=== PATIENT | female | born 1990 | race Caucasian/White ===

== ENCOUNTER 2018-04-14 12:58 | Emergency (ER) | payer SELFPAY ==
[2018-04-14] MEDS ORDERED: Ondansetron 4 MG/2 ML SDV IVPUSH ONE (13:57)
[2018-04-14] MEDS ORDERED: Sodium Chloride 0.9% 1,000 ML IV ONE (13:57)
--- NOTE | 2018-04-14 13:58 | EDM.PDOC ---
ED HPI GENERAL MEDICAL PROBLEM - General Chief Complaint: QUANTITATIVE ASSOCIATE Problem Stated Complaint: FEVER, 10 WKS , NAUSEA Time Seen by Provider: 04/14/18 13:52 Source of Information: Reports: Patient History Limitations: Reports: No Limitations - History of Present Illness INITIAL COMMENTS - FREE TEXT/NARRATIVE: Is 10 weeks . Usually vomits in the am x 1. Appetite reduced. Taking vitamin. Has Zofran but is not taking it very often. No diarrhea. Noble feverish today. No chills. Did get a liter of fluid on Sunday. 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: Social & Family History - Tobacco Use Smoking Status *Q: Current Every Day Smoker Years of Tobacco use: 12 Packs/Tins Daily: 0.5 - Caffeine Use Caffeine Use: Reports: None - Recreational Drug Use Recreational Drug Use: No ED ROS GENERAL - Review of Systems Review Of Systems: See Below Constitutional: Reports: Fever HEENT: Reports: No Symptoms Respiratory: Reports: No Symptoms Cardiovascular: Reports: No Symptoms Endocrine: Reports: No Symptoms GI/Abdominal: Reports: Vomiting (x2 this am) : Reports: No Symptoms Musculoskeletal: Reports: No Symptoms Skin: Reports: No Symptoms Neurological: Reports: No Symptoms Psychiatric: Reports: No Symptoms Hematologic/Lymphatic: Reports: No Symptoms Immunologic: Reports: No Symptoms ED EXAM - Physical Exam Exam: See Below Exam Limited By: No Limitations General Appearance: Alert, WD/WN, No Apparent Distress Ears: Normal External Exam, Normal Canal, Hearing Grossly Normal, Normal TMs Nose: Normal Inspection, Normal Mucosa, No Blood Throat/Mouth: Normal Inspection, Normal Lips, Normal Teeth, Normal Gums, Normal Oropharynx, Normal Voice, No Airway Compromise Head: Atraumatic, Normocephalic Neck: Normal Inspection, Supple, Non-Tender, Full Range of Motion Respiratory/Chest: No Respiratory Distress, Lungs Clear, Normal Breath Sounds, No Accessory Muscle Use, Chest Non-Tender Cardiovascular: Normal Peripheral Pulses, Regular Rate, Rhythm, No Edema, No Gallop, No JVD, No Murmur, No Rub GI/Abdominal Exam: Normal Bowel Sounds, Soft, Non-Tender, No Organomegaly, No Distention, No Abnormal Bruit, No Mass, Pelvis Stable Back Exam: Normal Inspection, Full Range of Motion, NT Extremities: Normal Inspection, Normal Range of Motion, Non-Tender, Normal Capillary Refill, No Pedal Edema Neurological: Alert, Oriented, CN II-XII Intact, Normal Cognition, Normal Gait, Normal Reflexes, No Motor/Sensory Deficits Psychiatric: Normal Affect, Normal Mood Course - Vital Signs Last Recorded V/S: Last Vital Signs Temp 97.3 F 04/14/18 13:26 Pulse 78 04/14/18 13:26 Resp 16 04/14/18 13:26 BP 117/69 04/14/18 13:26 Pulse Ox 98 04/14/18 13:26 - Orders/Labs/Meds Orders: Active Orders 24 hr Category Date Time Status UA W/MICROSCOPIC [URIN] Stat Lab 04/14/18 15:19 Ordered Labs: Laboratory Tests 04/14/18 Range/Units 15:19 Urine Color Yellow Urine Appearance Slightly cloudy Urine pH 6.0 (4.5-8.0) Ur Specific [place] 1.010 (1.008-1.030) Urine Protein Negative (NEGATIVE) mg/dL Urine Glucose (UA) Normal (NEGATIVE) mg/dL Urine Ketones Negative (NEGATIVE) mg/dL Urine Occult Blood Negative (NEGATIVE) Urine Nitrite Negative (NEGATIVE) Urine Bilirubin Negative (NEGATIVE) Urine Urobilinogen Normal (NORMAL) mg/dL Ur Leukocyte Esterase Negative (NEGATIVE) Urine RBC 0-5 (0-5) Urine WBC Not seen (0-5) Ur Epithelial Cells Few Amorphous Sediment Not seen Urine Bacteria Few Urine Mucus Rare Meds: Medications Discontinued Medications Generic Name Dose Route Start Last Admin Trade Name Freq PRN Reason Stop Dose Admin Sodium Chloride 1,000 mls @ 999 drops/sec 04/14/18 13:57 04/14/18 14:40 Normal Saline IV 04/14/18 13:58 999 drops/sec .BOLUS ONE Administration Ondansetron HCl 4 mg 04/14/18 13:57 04/14/18 14:40 Zofran IVPUSH 04/14/18 13:58 4 mg ONETIME ONE Administration Departure - Departure Time of Disposition: 15:43 Disposition: Home, Self-Care 01 Condition: Good Clinical Impression: , excessive vomiting - Discharge Information Referrals: Cinthya Narvaez CNM [Primary Care Provider] - Forms: ED Department Discharge Additional Instructions: UA normal. IV NS 1000ml infused. Zofran 4mg IV given with good resolution of symptoms. Pt able to drink a milk shake while her in ER. To be discharged home. Discussed tips for nausea and vomiting in . Followup with OB for routine cares. - Problem List & Annotations (1) , excessive vomiting Status: Acute Priority: Medium Current Visit: Yes - My Orders Last 24 Hours: My Active Orders 04/14/18 15:19 UA W/MICROSCOPIC [URIN] Stat - Assessment/Plan Last 24 Hours: My Active Orders 04/14/18 15:19 UA W/MICROSCOPIC [URIN] Stat
== END 2018-04-14 15:56 | disposition home or self-care (01) ==
LOC: JP.ED 12:58
DX: O21.9 Vomiting of pregnancy, unspecified (principal); O99.331 Smoking (tobacco) complicating pregnancy, first trimester; F17.210 Nicotine dependence, cigarettes, uncomplicated; Z88.1 Allergy status to other antibiotic agents; Z3A.10 10 weeks gestation of pregnancy
CPT/HCPCS: 81001; 96361; 96374; 99284; J2405; J7030

== ENCOUNTER 2018-05-04 04:46 | Emergency (ER) | payer OTHER ==
--- NOTE | 2018-05-04 05:11 | EDM.PDOC ---
ED HPI GENERAL MEDICAL PROBLEM - General Source of Information: Reports: Patient, Family History Limitations: Reports: No Limitations - History of Present Illness Onset: Unknown/Unsure Severity: Moderate (Sometime overnight she started bleeding) Associated Symptoms: Reports: Nausea/Vomiting Treatments STICK INSERTER: Reports: Oxygen, Other (see below) Other Treatments STICK INSERTER: none Lower Abdominal Pain Score (Numeric/FACES): 3 <Arian Gannon - Last Filed: 05/04/18 06:55> <Ivory Swenson - Last Filed: 05/04/18 08:06> - General Chief Complaint: HASH SLINGER Problem Stated Complaint: 12 WEEKS PG AND BLEEDING Time Seen by Provider: 05/04/18 05:00 - History of Present Illness INITIAL COMMENTS - FREE TEXT/NARRATIVE: 28-year-old female carrying twins, had an ultrasound yesterday and everything looked good at roughly 12 weeks' gestation however this morning when she got up to go to work she passed a fairly large amount of blood into the toilet and feels like she still bleeding. She has developed some mild diffuse abdominal discomfort, no pelvic cramping. She is tearful and very concerned. 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: <Arian Gannon - Last Filed: 05/04/18 06:55> Social & Family History - Caffeine Use Caffeine Use: Reports: None <Arian Gannon - Last Filed: 05/04/18 06:55> ED ROS GENERAL - Review of Systems Review Of Systems: See Below Constitutional: Denies: Fever, Chills HEENT: Reports: No Symptoms Respiratory: Denies: Shortness of Breath GI/Abdominal: Reports: Other (Patient is being treated with IV fluids on a fairly regular basis for persistent hyperemesis gravidarum symptoms) <Arian Gannon - Last Filed: 05/04/18 06:55> ED EXAM - Physical Exam Exam: See Below Exam Limited By: No Limitations General Appearance: Alert, No Apparent Distress, Anxious Eye Exam: Bilateral Eye: Other (Eyes are well-hydrated) Respiratory/Chest: No Respiratory Distress Neurological: Alert, Oriented Skin Exam: Warm, Dry <Arian Gannon - Last Filed: 05/04/18 06:55> Course <Arian Gannon - Last Filed: 05/04/18 06:55> <Ivory Swenson - Last Filed: 05/04/18 08:06> - Vital Signs Last Recorded V/S: Last Vital Signs Temp 36.3 C 05/04/18 05:10 Pulse 77 05/04/18 05:10 Resp 18 05/04/18 05:10 BP 111/64 05/04/18 05:10 Pulse Ox 96 05/04/18 05:10 - Orders/Labs/Meds Orders: Active Orders 24 hr Category Date Time Status OB Ltd 1 or More Fetus [US] Stat Exams 05/04/18 05:11 Taken Sodium Chloride 0.9% [Normal Saline] 1,000 ml Med 05/04/18 07:00 Active IV ASDIRECTED Medication Orders Sodium Chloride (Normal Saline) 1,000 mls @ 1,000 mls/hr IV ASDIRECTED [place]O Last Admin: 05/04/18 07:02 Dose: 1,000 mls/hr Labs: Laboratory Tests 05/04/18 05/04/18 Range/Units 07:07 07:07 WBC 14.9 H (4.5-11.0) K/uL RBC 4.38 (3.30-5.50) M/uL Hgb 13.9 (12.0-15.0) g/dL Hct 39.0 (36.0-48.0) % MCV 89 (80-98) fL MCH 32 H (27-31) pg MCHC 36 (32-36) % Plt Count 163 (150-400) K/uL Neut % (Auto) 81 H (36-66) % Lymph % (Auto) 12 L (24-44) % [place] % (Auto) 6 (2-6) % Eos % (Auto) 1 L (2-4) % Baso % (Auto) 0 (0-1) % Sodium 137 L (140-148) mmol/L Potassium 3.3 L (3.6-5.2) mmol/L Chloride 103 (100-108) mmol/L Carbon Dioxide 24 (21-32) mmol/L Anion Gap 13.3 (5.0-14.0) mmol/L BUN 5 L (7-18) mg/dL Creatinine 0.7 (0.6-1.0) mg/dL Est Cr Clr Drug Dosing 114.01 mL/min Estimated GFR (MDRD) > 60 (>60) Glucose 79 (74-106) mg/dL Calcium 8.7 (8.5-10.1) mg/dL Meds: Medications Generic Name Dose Route Start Last Admin Trade Name Freq PRN Reason Stop Dose Admin Sodium Chloride 1,000 mls @ 1,000 mls/hr 05/04/18 07:00 05/04/18 07:02 Normal Saline IV 1,000 mls/hr ASDIRECTED [facility] Administration - Re-Assessments/Exams Free Text/Narrative Re-Assessment/Exam: 05/04/18 05:10 A first trimester ultrasound was ordered. 05/04/18 06:55 Confirmation has not been obtained yet but ultrasound appears to show a subchorionic hemorrhage. Both fetuses are viable. I discussed her condition with Wendy Hernandez, a CBC and BMP was obtained and the patient was given 1 L of normal saline. She will be evaluated by Wendy later this morning. (Arian Gannon) Departure - Departure Condition: Good <Arian Gannon - Last Filed: 05/04/18 06:55> - Departure Time of Disposition: 08:06 <Ivory Swenson - Last Filed: 05/04/18 08:06> - Departure Disposition: Home, Self-Care 01 Clinical Impression: Threatened Subchorionic hemorrhage in first trimester Qualifiers: Fetus number: single or unspecified fetus Qualified Code(s): O41.8X10 - Other specified disorders of amniotic fluid and membranes, first trimester, not applicable or unspecified - Discharge Information Instructions: Pelvic Rest, Subchorionic Hematoma Referrals: Brice,Cinthya A, CNM [Primary Care Provider] - Forms: ED Department Discharge Care Plan Goals: low activity, appt with Albina Narvaez Sunday to followup.
[2018-05-04] MEDS ORDERED: Sodium Chloride 0.9% 1,000 ML IV SCH (07:00)
== END 2018-05-04 08:14 | disposition home or self-care (01) ==
LOC: JP.ED 04:46
DX: O20.0 Threatened abortion (principal); O30.001 Twin pregnancy, unspecified number of placenta and unspecified number of amniotic sacs, first trimester; Z79.899 Other long term (current) drug therapy; Z88.1 Allergy status to other antibiotic agents; Z3A.12 12 weeks gestation of pregnancy
CPT/HCPCS: 36415; 76815; 80048; 85025; 96360; 99284; J7030

== ENCOUNTER 2018-06-15 20:24 | Emergency (ER) | payer OTHER ==
--- NOTE | 2018-06-15 21:00 | EDM.PDOC ---
ED HPI GENERAL MEDICAL PROBLEM - General Chief Complaint: Cardiovascular Problem Stated Complaint: HEART PALPITATIONS Time Seen by Provider: 06/15/18 20:44 Source of Information: Reports: Patient, Family, RN Notes Reviewed History Limitations: Reports: No Limitations - History of Present Illness INITIAL COMMENTS - FREE TEXT/NARRATIVE: 28-year-old female presents to emergency department day complaint of palpitations she is 2 para 1 currently at 18 and 5 weeks with twins she states she'll get palpitations last a short time less than 5 minutes but they've been increasing in frequency and severity states she gets them about every day. 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 She states she did not have these with last time had no issues - Related Data Allergies Allergy/AdvReac Type Severity Reaction Status Date / Time amoxicillin Allergy Hives Verified 06/15/18 20:40 Home Meds: Home Meds Ondansetron HCl [Ondansetron] 4 mg PO Q8HR PRN 04/14/18 [History] Doxylamine Succinate [Wal-Shola] 0.5 tab PO BEDTIME 05/04/18 [History] Vit #116/Iron/FA/Dha [ Formula-Dha Softgel] 1 tab PO DAILY [History] Past Medical History Cardiovascular History: Reports: Arrhythmia CAMP DIRECTOR History: Reports: Musculoskeletal History: Reports: Arthritis Neurological History: Reports: Migraines Psychiatric History: Reports: Anxiety, Depression - Infectious Disease History Infectious Disease History: Reports: Chicken Pox, Mononucleosis, Shingles Social & Family History - Tobacco Use Smoking Status *Q: Current Every Day Smoker Years of Tobacco use: 14 Packs/Tins Daily: 0.5 - Caffeine Use Caffeine Use: Reports: None - Recreational Drug Use Recreational Drug Use: No ED ROS GENERAL - Review of Systems Review Of Systems: See Below Constitutional: Reports: No Symptoms HEENT: Reports: No Symptoms Respiratory: Reports: No Symptoms Cardiovascular: Reports: Chest Pain, Palpitations GI/Abdominal: Reports: No Symptoms : Reports: No Symptoms Musculoskeletal: Reports: No Symptoms Skin: Reports: No Symptoms Neurological: Reports: No Symptoms ED EXAM, GENERAL - Physical Exam Exam: See Below Exam Limited By: No Limitations General Appearance: Alert, WD/WN, No Apparent Distress Head: Atraumatic, Normocephalic Neck: Normal Inspection, Supple, Non-Tender, Full Range of Motion Respiratory/Chest: No Respiratory Distress, Lungs Clear, Normal Breath Sounds, No Accessory Muscle Use, Chest Non-Tender Cardiovascular: Normal Peripheral Pulses, Regular Rate, Rhythm, No JVD, No Murmur, No Rub GI/Abdominal: Soft, Other (, pedal heart tones both in the 150 range) Course - Vital Signs Last Recorded V/S: Last Vital Signs Temp 98.7 F 06/15/18 20:40 Pulse 84 06/15/18 20:40 Resp 23 H 06/15/18 20:40 BP 107/62 06/15/18 20:40 Pulse Ox 97 06/15/18 20:40 - Orders/Labs/Meds Orders: Active Orders 24 hr Category Date Time Status EKG Documentation Completion [RC] ASDIRECTED Care 06/15/18 20:58 Active EKG 12 Lead [EK] Stat Ther 06/15/18 20:57 Ordered Labs: Laboratory Tests 06/15/18 06/15/18 06/15/18 Range/Units 20:57 20:57 20:58 WBC 12.8 H (4.5-11.0) K/uL RBC 3.75 (3.30-5.50) M/uL Hgb 12.1 (12.0-15.0) g/dL Hct 33.7 L (36.0-48.0) % MCV 90 (80-98) fL MCH 32 H (27-31) pg MCHC 36 (32-36) % Plt Count 156 (150-400) K/uL Neut % (Auto) 77 H (36-66) % Lymph % (Auto) 15 L (24-44) % [place] % (Auto) 6 (2-6) % Eos % (Auto) 1 L (2-4) % Baso % (Auto) 0 (0-1) % Sodium 139 L (140-148) mmol/L Potassium 3.2 L (3.6-5.2) mmol/L Chloride 104 (100-108) mmol/L Carbon Dioxide 26 (21-32) mmol/L Anion Gap 12.2 (5.0-14.0) mmol/L BUN 4 L (7-18) mg/dL Creatinine 0.6 (0.6-1.0) mg/dL Est Cr Clr Drug Dosing 133.01 mL/min Estimated GFR (MDRD) > 60 (>60) Glucose 95 (74-106) mg/dL Calcium 8.7 (8.5-10.1) mg/dL Magnesium 1.7 L (1.8-2.4) mg/dL Total Bilirubin 0.2 (0.2-1.0) mg/dL AST 15 (15-37) U/L ALT 19 (12-78) U/L Alkaline Phosphatase 63 (46-116) U/L Total Protein 5.7 L (6.4-8.2) g/dL Albumin 2.5 L (3.4-5.0) g/dL Globulin 3.2 (2.3-3.5) g/dL Albumin/Globulin Ratio 0.8 L (1.2-2.2) TSH, Ultra Sensitive 2.250 (0.358-3.740) uIU/mL Departure - Departure Time of Disposition: 22:13 Disposition: Home, Self-Care 01 Condition: Good Clinical Impression: Palpitations Referrals: Cinthya Narvaez CNM [Primary Care Provider] - Forms: ED Department Discharge Additional Instructions: Please report to respiratory therapy on Sunday for placement of a Holter monitor , follow-up with your primary care a few days after he returned the Holter monitor for review and results - My Orders Last 24 Hours: My Active Orders 06/15/18 20:57 EKG 12 Lead [EK] Stat 06/15/18 20:58 EKG Documentation Completion [RC] ASDIRECTED - Assessment/Plan Last 24 Hours: My Active Orders 06/15/18 20:57 EKG 12 Lead [EK] Stat 06/15/18 20:58 EKG Documentation Completion [RC] ASDIRECTED Plan: Assessment Acuity = acute Site and laterality = palpitations Etiology = suspicious for underlying PVCs possibly related to nicotine Manifestations = none Location of injury = Home Lab values = WBC elevated 12.8 consistent leukocytosis, potassium low at 3.2 consistent hypokalemia magnesium low at 1.7 consistent with hypomagnesemia albumin low at 2.5 consistent with hypoalbuminemia, EKG demonstrates sinus rhythm no ST changes or depressions noted no PVCs appreciated Plan She did have a few PVCs appreciated on the traffic monitor specialist I talked to her about options to review her vitamin to make sure it has adequate potassium and magnesium minutes also she is set up for a Holter monitor she will pick this up on Sunday 48 hours follow-up with primary care after Holter monitor results available This note was dictated using Genome voice recognition software please call with any questions on syntax or grammar.
== END 2018-06-15 22:24 | disposition home or self-care (01) ==
LOC: JP.ED 20:24
DX: O99.89 Other specified diseases and conditions complicating pregnancy, childbirth and the puerperium (principal); R00.2 Palpitations; Z3A.18 18 weeks gestation of pregnancy; O99.331 Smoking (tobacco) complicating pregnancy, first trimester; F17.210 Nicotine dependence, cigarettes, uncomplicated; Z79.899 Other long term (current) drug therapy; Z88.1 Allergy status to other antibiotic agents
CPT/HCPCS: 36415; 80053; 83735; 84443; 85025; 93005; 99284-25

== ENCOUNTER 2019-09-28 16:29 | Emergency (ER) | payer OTHER ==
--- NOTE | 2019-09-28 18:49 | EDM.PDOC ---
ED HPI GENERAL MEDICAL PROBLEM - General Chief Complaint: Respiratory Problem Stated Complaint: SOB, VOMITING, POSSIBLE DEHYDRATION Time Seen by Provider: 09/28/19 18:30 Source of Information: Reports: Patient History Limitations: Reports: No Limitations - History of Present Illness INITIAL COMMENTS - FREE TEXT/NARRATIVE: 29-year-old currently 11 weeks presents to concerns of nasal congestion cough, nausea. She reports that symptoms started approximately 2 days ago. She's been having progressive nasal congestion and associated cough. She has no chest pain. No fevers. She reports that she will have bouts of coughing which lead to nausea, several episodes of small volume emesis. The cough has been productive of yellow sputum. No blood. 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: Musculoskeletal History: Reports: Arthritis Neurological History: Reports: Migraines Psychiatric History: Reports: Anxiety, Depression Hematologic History: Reports: Anemia - Infectious Disease History Infectious Disease History: Reports: Chicken Pox - Past Surgical History HEENT Surgical History: Reports: None Social & Family History - Family History Family Medical History: Unobtainable - Tobacco Use Smoking Status *Q: Current Every Day Smoker Years of Tobacco use: 12 Packs/Tins Daily: 0.5 - Caffeine Use Caffeine Use: Reports: None Caffeine Use Comment: occasional coffee, soda 2-3 / week - Recreational Drug Use Recreational Drug Use: No ED ROS GENERAL - Review of Systems Review Of Systems: See Below Constitutional: Reports: Malaise HEENT: Reports: Sinus Problem Respiratory: Reports: Cough Cardiovascular: Reports: No Symptoms Endocrine: Reports: No Symptoms GI/Abdominal: Reports: No Symptoms : Reports: No Symptoms Musculoskeletal: Reports: No Symptoms Skin: Reports: No Symptoms Neurological: Reports: No Symptoms Psychiatric: Reports: No Symptoms Hematologic/Lymphatic: Reports: No Symptoms Immunologic: Reports: No Symptoms ED EXAM, GENERAL - Physical Exam Exam: See Below Exam Limited By: No Limitations General Appearance: Alert, No Apparent Distress Ears: Normal External Exam Nose: Normal Inspection Head: Atraumatic, Normocephalic Neck: Normal Inspection Respiratory/Chest: No Respiratory Distress, Lungs Clear Cardiovascular: Regular Rate, Rhythm GI/Abdominal: Soft, Non-Tender Back Exam: Normal Inspection Extremities: Normal Inspection Neurological: Alert, Oriented Psychiatric: Normal Affect, Normal Mood Skin Exam: Warm, Dry Course - Vital Signs Last Recorded V/S: Last Vital Signs Temp 36.7 C 09/28/19 17:00 Pulse 104 H 09/28/19 17:00 Resp 16 09/28/19 17:00 BP 142/74 H 09/28/19 17:00 Pulse Ox 96 09/28/19 17:00 - Re-Assessments/Exams Free Text/Narrative Re-Assessment/Exam: 29-year-old presents with symptoms consistent with sinusitis. She is overall well-appearing. Mildly tachycardic but otherwise no concerning findings by exam. Presentation is consistent with viral etiology. She is having minimal respiratory symptoms this time, do not think we need to look for pneumonia, PE, etc. We discussed possibly checking a influenza rapid screen, however the patient has taken toe for the past and tolerated this. Plan is otherwise for symptomatic cares including Zofran, NSAIDS, nasal irrigation. She will return for worsening symptoms 09/28/19 18:55 Departure - Departure Time of Disposition: 18:47 Disposition: Home, Self-Care 01 Clinical Impression: Sinusitis Qualifiers: Sinusitis location: unspecified location Chronicity: acute Recurrence: non- recurrent Qualified Code(s): J01.90 - Acute sinusitis, unspecified - Discharge Information Prescriptions: Ondansetron [Zofran ODT] 4 mg PO Q4H PRN #15 tab.dis PRN Reason: Nausea Referrals: PCP,None [Primary Care Provider] - Forms: ED Department Discharge Additional Instructions: Your symptoms are most consistent with a viral infection of the sinuses. As discussed, supportive cares such as tylenol/ibuprofen, zofran, saline nasal irrigation as how this is treated. Please use the zofran as needed. Return to the ER if your symptoms are worsening, you're having high fevers, or other symptoms which are concerning to you.
== END 2019-09-28 18:53 | disposition home or self-care (01) ==
LOC: JP.ED 16:29
DX: O99.511 Diseases of the respiratory system complicating pregnancy, first trimester (principal); J01.90 Acute sinusitis, unspecified; O99.331 Smoking (tobacco) complicating pregnancy, first trimester; F17.210 Nicotine dependence, cigarettes, uncomplicated; Z3A.11 11 weeks gestation of pregnancy; Z88.0 Allergy status to penicillin
CPT/HCPCS: 99283

== ENCOUNTER 2019-10-01 23:21 | Emergency (ER) | payer OTHER ==
--- NOTE | 2019-10-02 00:44 | EDM.PDOC ---
ED HPI GENERAL MEDICAL PROBLEM - General Chief Complaint: ENT Problem Stated Complaint: SINUS INFECTION/HEADACHE Time Seen by Provider: 10/02/19 00:36 Source of Information: Reports: Patient History Limitations: Reports: No Limitations - History of Present Illness INITIAL COMMENTS - FREE TEXT/NARRATIVE: Patient presents tonight describing persistent headache, sinus fullness, photophobia, over the last for 5 days. She has a history of migraine headaches and sometimes these symptoms can represent a migraine area did everyone in their household has had cold symptoms recently and that is probably partially at work here. She has been using Mucinex for several days. Mixed success with that. She was seen in this department recently and no other specific medications were used. Her main concern tonight is headache, more so than the sinus fullness. She had 1 emesis earlier today but that is not unusual when she is , she is now 11 weeks gestation. Onset: Gradual Duration: Day(s): (3) Quality: Reports: Dull, Throbbing Severity: Moderate Improves with: Reports: None Worsens with: Reports: Other (Exposure to light.), Movement Associated Symptoms: Reports: Nausea/Vomiting Head Pain Score (Numeric/FACES): 6 - Related Data Allergies Allergy/AdvReac Type Severity Reaction Status Date / Time amoxicillin Allergy Hives Verified 09/29/19 13:11 Home Meds: Home Meds Vit #116/Iron/FA/Dha [ Formula-Dha Softgel] 1 tab PO DAILY [History] Ondansetron [Zofran ODT] 4 mg PO Q4H PRN #15 tab.dis 09/28/19 [Rx] Past Medical History - Past Health History Medical/Surgical History: Denies Medical/Surgical History HEENT History: Reports: Sinusitis Cardiovascular History: Reports: Arrhythmia [employer]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: Musculoskeletal History: Reports: Arthritis Neurological History: Reports: Migraines Psychiatric History: Reports: Anxiety, Depression Hematologic History: Reports: Anemia - Infectious Disease History Infectious Disease History: Reports: Chicken Pox - Past Surgical History HEENT Surgical History: Reports: None Social & Family History - Family History Family Medical History: Unobtainable - Tobacco Use Smoking Status *Q: Current Every Day Smoker Years of Tobacco use: 14 Packs/Tins Daily: 0.5 - Caffeine Use Caffeine Use: Reports: None Caffeine Use Comment: occasional coffee, soda 2-3 / week - Recreational Drug Use Recreational Drug Use: No ED ROS GENERAL - Review of Systems Review Of Systems: See Below Constitutional: Denies: Fever, Chills HEENT: Reports: Sinus Problem, Other (Photophobia.) Respiratory: Denies: Shortness of Breath ED EXAM, DIZZINESS - Physical Exam Exam: See Below Exam Limited By: No Limitations General Appearance: Moderate Distress Respiratory/Chest: No Respiratory Distress Cardiovascular: Regular Rate, Rhythm Course - Vital Signs Last Recorded V/S: Last Vital Signs Temp 36.8 C 10/01/19 23:36 Pulse 82 10/01/19 23:36 Resp 16 10/01/19 23:36 BP 125/73 10/01/19 23:36 Pulse Ox 96 10/01/19 23:36 - Orders/Labs/Meds Orders: Active Orders 24 hr Category Date Time Status Sodium Chloride 0.9% [Saline Flush] Med 10/02/19 00:49 Ordered 10 ml FLUSH ASDIRECTED PRN Saline Lock Insert [OM.PC] Routine Oth 10/02/19 00:49 Ordered Medication Orders Sodium Chloride (Saline Flush) 10 ml FLUSH ASDIRECTED PRN PRN Reason: Keep Vein Open Meds: Medications Generic Name Dose Route Start Last Admin Trade Name Freq PRN Reason Stop Dose Admin Sodium Chloride 10 ml 10/02/19 00:49 Saline Flush FLUSH ASDIRECTED PRN Keep Vein Open Discontinued Medications Generic Name Dose Route Start Last Admin Trade Name Freq PRN Reason Stop Dose Admin Diphenhydramine HCl 25 mg 10/02/19 01:38 10/02/19 01:41 Benadryl IVPUSH 10/02/19 01:39 25 mg ONETIME ONE Administration Diphenhydramine HCl Confirm 10/02/19 01:40 10/02/19 01:44 Benadryl Administered 10/02/19 01:41 Not Given Dose 50 mg .ROUTE .STK-MED ONE Prochlorperazine Edisylate 10 52 mls @ 150 mls/hr 10/02/19 00:48 10/02/19 01: 34 mg/ Sodium Chloride IV 10/02/19 01:08 Not Given ONETIME ONE Sodium Chloride 500 mls @ 999 mls/hr 10/02/19 00:49 10/02/19 01:17 Normal Saline IV 10/02/19 01:19 999 mls/hr .BOLUS ONE Administration Prochlorperazine Edisylate 10 mg 10/02/19 01:33 10/02/19 01:34 Compazine IVPUSH 10/02/19 01:34 10 mg ONETIME ONE Administration - Re-Assessments/Exams Free Text/Narrative Re-Assessment/Exam: 10/02/19 01:43 Patient will be given Compazine 10 mg IV along with a 500 mL normal saline bolus approximately 0135 hours, her came to the nurse's station saying that since receiving the Compazine, she is restless and pacing the room. I returned to her room and she was indeed feeling that way. She'll be given Benadryl 25 mg IV to counteract the dystonia. 10/02/19 02:08 0204 hrs., patient's headache pain after receiving Benadryl is now almost completely gone, she is no longer dystonic, she no longer has nausea. She'll be discharged home to continue usual cares. I discussed that she should not be given Compazine or other phenothiazine antiemetics as the entire group a cause a dystonic effect. She was discharged in a sleepy but improved condition. Departure - Departure Time of Disposition: 02:06 Disposition: Home, Self-Care 01 Clinical Impression: Headache, Upper respiratory infection, viral, Dystonic drug reaction - Discharge Information *PRESCRIPTION DRUG MONITORING PROGRAM REVIEWED*: Not Applicable *COPY OF PRESCRIPTION DRUG MONITORING REPORT IN PATIENT ZANE: Not Applicable Referrals: PCP,None [Primary Care Provider] - Forms: ED Department Discharge Additional Instructions: Ensure adequate fluid intake. Tylenol 1000 mg 3 times daily as needed for headache. It is okay to continue the Mucinex. The reaction you had to the Compazine nausea/headache medication is called a dystonic reaction. You should avoid that particular medicine and any others in the same class as all of them could give you the same restless feeling. It is not a true allergic reaction at and annoying occasionally occurring side effect of that particular family of medications. Return to ER if feeling worse in anyway. Sepsis Event Note - Evaluation Sepsis Screening Result: No Definite Risk - Focused Exam Vital Signs: Vital Signs Temp Pulse Resp BP Pulse Ox 10/01/19 23:36 36.8 C 82 16 125/73 96 Date Exam was Performed: 10/02/19 Time Exam was Performed: 02:08 - My Orders Last 24 Hours: My Active Orders 10/02/19 00:49 Sodium Chloride 0.9% [Saline Flush] 10 ml FLUSH ASDIRECTED PRN Saline Lock Insert [OM.PC] Routine - Assessment/Plan Last 24 Hours: My Active Orders 10/02/19 00:49 Sodium Chloride 0.9% [Saline Flush] 10 ml FLUSH ASDIRECTED PRN Saline Lock Insert [OM.PC] Routine
[2019-10-02] MEDS ORDERED: Prochlorperazine 10 MG in Sodium Chloride 0.9% 50 ML IV ONE (00:48)
[2019-10-02] MEDS ORDERED: Sodium Chloride 0.9% 10 ML Syringe FLUSH PRN (00:49)
[2019-10-02] MEDS ORDERED: Sodium Chloride 0.9% 500 ML IV ONE (00:49)
[2019-10-02] MEDS ORDERED: Prochlorperazine 10 MG/2 ML SDV IVPUSH ONE (01:33)
[2019-10-02] MEDS ORDERED: diphenhydrAMINE 50 MG/ML SDV IVPUSH ONE (01:38)
[2019-10-02] MEDS ORDERED: diphenhydrAMINE 50 MG/ML SDV ONE (01:40)
== END 2019-10-02 02:14 | disposition home or self-care (01) ==
LOC: JP.ED 23:21
DX: G24.09 Other drug induced dystonia (principal); J06.9 Acute upper respiratory infection, unspecified; R51 Headache; Z88.0 Allergy status to penicillin; F17.210 Nicotine dependence, cigarettes, uncomplicated
CPT/HCPCS: 96374; 96375; 99283; J0780; J1200; J7040

== ENCOUNTER 2020-09-04 19:41 | Emergency (ER) | payer MEDICAID ==
--- NOTE | 2020-09-04 21:27 | EDM.PDOC ---
ED HPI GENERAL MEDICAL PROBLEM - General Chief Complaint: Lower Extremity Injury/Pain Stated Complaint: LT FOOT INJURY Time Seen by Provider: 09/04/20 21:15 Source of Information: Reports: Patient, Family, RN Notes Reviewed History Limitations: Reports: No Limitations - History of Present Illness INITIAL COMMENTS - FREE TEXT/NARRATIVE: 30-year-old female presents emergency department today after hitting her left foot lateral aspect on a chair, pain is so intense she cannot bear weight - Related Data Allergies Allergy/AdvReac Type Severity Reaction Status Date / Time amoxicillin Allergy Hives Verified 09/04/20 20:06 Compazine AdvReac Irritabilit Uncoded 09/04/20 20:06 y Home Meds: Home Meds NK [No Known Home Meds] 09/04/20 [History] Past Medical History HEENT History: Reports: Sinusitis Cardiovascular History: Reports: Arrhythmia [employer] SUPER[employer]OR History: Reports: Musculoskeletal History: Reports: Arthritis Neurological History: Reports: Migraines Psychiatric History: Reports: Anxiety, Depression Hematologic History: Reports: Anemia - Infectious Disease History Infectious Disease History: Reports: Chicken Pox - Past Surgical History HEENT Surgical History: Reports: None Cardiovascular Surgical History: Reports: None Social & Family History - Family History Family Medical History: Unobtainable - Tobacco Use Tobacco Use Status *Q: Current Every Day Tobacco User Years of Tobacco use: 12 Packs/Tins Daily: 1 - Caffeine Use Caffeine Use: Reports: None Caffeine Use Comment: occasional coffee, soda 2-3 / week Review of Systems - Review of Systems Review Of Systems: See Below Musculoskeletal: Reports: Foot Pain ED EXAM, GENERAL - Physical Exam Exam: See Below Free Text/Narrative:: Examination left foot pedal pulses +2 I do not appreciate any erythema there is no edema she is tender over the fifth phalanx area Course - Vital Signs Last Recorded V/S: Last Vital Signs Temp 97.1 F 09/04/20 20:12 Pulse 82 09/04/20 20:12 Resp 16 09/04/20 20:12 BP 109/69 09/04/20 20:12 Pulse Ox 98 09/04/20 20:12 - Orders/Labs/Meds Orders: Active Orders 24 hr Category Date Time Status Foot Comp Min 3V Lt [CR] Stat Exams 09/04/20 20:14 Taken DME for Discharge [COMM] Stat Oth 09/04/20 21:22 Ordered Departure - Departure Time of Disposition: 21:24 Disposition: Home, Self-Care 01 Condition: Fair Clinical Impression: Closed fracture of phalanx of left fifth toe Qualifiers: Encounter type: initial encounter Qualified Code(s): S92.502A - Displaced unspecified fracture of left lesser toe(s), initial encounter for closed fracture - Discharge Information Instructions: Toe Fracture, [id number] Referrals: PCP,None [Primary Care Provider] - Forms: ED Department Discharge, ED Return to Work/School Form Additional Instructions: Continue to use the hard soled shoe and crutches as needed for pain control, use ibuprofen for baseline pain use hydrocodone for breakthrough pain please call to the [facility] in the morning for an appointment time with orthopedics Sepsis Event Note (ED) - Evaluation Sepsis Screening Result: No Definite Risk - Focused Exam Vital Signs: Vital Signs Temp Pulse Resp BP Pulse Ox 09/04/20 20:12 97.1 F 82 16 109/69 98 09/04/20 19:59 97.1 F 82 16 109/69 98 - My Orders Last 24 Hours: My Active Orders 09/04/20 20:14 Foot Comp Min 3V Lt [CR] Stat 09/04/20 21:22 DME for Discharge [COMM] Stat - Assessment/Plan Last 24 Hours: My Active Orders 09/04/20 20:14 Foot Comp Min 3V Lt [CR] Stat 09/04/20 21:22 DME for Discharge [COMM] Stat Plan: Assessment Acuity = acute Site and laterality = midshaft fracture proximal phalanx digit #5 Etiology = secondary trauma Manifestations = none Location of injury = Home Lab values = x-ray describes a fracture above Plan She is placed in a hard soled shoe crutches consultation with orthopedics in [place] set up hydrocodone 5/325 1 tab p.o. 3 times daily as needed total #10 This note was dictated using Maven[employer] voice recognition software please call with any questions on syntax or grammar.
--- NOTE | 2020-09-06 09:27 | CR ---
Foot Comp Min 3V Lt CLINICAL HISTORY: Injury FINDINGS: There is an oblique fracture through the fifth proximal phalanx with slight displacement. IMPRESSION: Fracture fifth proximal phalanx
== END 2020-09-04 21:42 | disposition home or self-care (01) ==
LOC: JP.ED 19:41
DX: S92.512A Displaced fracture of proximal phalanx of left lesser toe(s), initial encounter for closed fracture (principal); F17.210 Nicotine dependence, cigarettes, uncomplicated; Z88.1 Allergy status to other antibiotic agents; Z88.8 Allergy status to other drugs, medicaments and biological substances; W22.8XXA Striking against or struck by other objects, initial encounter
CPT/HCPCS: 73630-26-LT; 73630-LT; 99283-25

== ENCOUNTER 2022-07-21 14:04 | Emergency (ER) | payer MEDICAID ==
[2022-07-21] MEDS: diphenhydrAMINE 50 MG/ML SDV IVPUSH ONE (15:06)
[2022-07-21] MEDS: Ondansetron 4 MG/2 ML SDV IVPUSH ONE (15:06)
[2022-07-21] MEDS: Sodium Chloride 0.9% 500 ML IV ONE ×2 (15:06→15:46)
[2022-07-21] MEDS: Sodium Chloride 0.9% 10 ML Syringe FLUSH PRN (15:07)
[2022-07-21] MEDS: Dexamethasone 4 MG/ML SDV IVPUSH ONE (15:41)
== END 2022-07-21 16:55 | disposition home or self-care (01) ==
LOC: JP.ED 14:04
DX: G43.909 Migraine, unspecified, not intractable, without status migrainosus (principal); F17.210 Nicotine dependence, cigarettes, uncomplicated; Z88.0 Allergy status to penicillin; Z88.1 Allergy status to other antibiotic agents; Z88.8 Allergy status to other drugs, medicaments and biological substances; Z86.16 Personal history of COVID-19
CPT/HCPCS: 96374; 96375; 99282; 99283-25; J1100; J1200; J2405; J3490; J7040